=== PATIENT | female | born 1955 | race Caucasian/White ===

== ENCOUNTER 2022-12-23 09:19 | Emergency (ER) | payer MEDICARE, SELFPAY ==
[2022-12-23 09:32] VITALS: BP 158/84; PULSE 88; RESP 16; TEMP 36.9; O2SAT 97
--- NOTE | 2022-12-23 09:34 | ED.URI ---
HPI - URI/Sore Throat General Chief Complaint: Upper Respiratory Infection Stated Complaint: Sore Throat History of Present Illness HPI Narrative: PATIENT PRESENTS WITH A SORE THROAT. PATIENT STATES IT HURTS TO SWALLOW BUT SHE HAS NO SWALLOWING TROUBLE SWALLOWING NO DROOLING. PATIENT WATCHES HER GRANDDAUGHTER ON A DAILY BASIS WHILE HER DAUGHTER WORKS AND HER GRANDDAUGHTER TESTED POSITIVE FOR STREP 2 DAYS AGO. NO FEVER NO COUGH NO OTHER SYMPTOMS. Related Data Home Medications Medication Instructions Recorded Confirmed rizatriptan 10 mg tablet 10 mg PO DAILY PRN Migraine 12/23/22 12/23/22 Headache rosuvastatin 5 mg tablet 5 mg PO Q48H 12/23/22 12/23/22 Allergies Allergy/AdvReac Type Severity Reaction Status Date / Time Sulfa (Sulfonamide AdvReac Intermediate Nausea and Verified 12/23/22 09:41 Antibiotics) Vomiting Review of Systems Review of Systems: CONSTITUTIONAL: DENIES CHILLS, OR SWEATS. REPORTS FEVER AND GENERALIZED BODY ACHES EYES: DENIES VISUAL CHANGES, REDNESS, OR DISCHARGE. ENT: DENIES OTALGIA. REPORTS NASAL CONGESTION RUNNY NOSE AND SORE THROAT CARDIOVASCULAR: DENIES CHEST PAIN, PALPITATIONS, OR EDEMA. RESPIRATORY: DENIES DYSPNEA. REPORTS OCCASIONAL COUGH GASTROINTESTINAL: DENIES ABDOMINAL PAIN, NAUSEA, VOMITING, OR DIARRHEA. GENITOURINARY: DENIES DYSURIA OR HEMATURIA. SKIN: DENIES RASH OR ITCHING. MUSCULOSKELETAL: DENIES BACK PAIN, JOINT PAIN, OR MYALGIA. REPORTS GENERALIZED BODY ACHES NEUROLOGIC: DENIES HEADACHE, NUMBNESS, OR WEAKNESS. PSYCHIATRIC: DENIES ANXIETY OR DEPRESSION. Exam Narrative: THE PATIENT IS A WELL-DEVELOPED, WELL-NOURISHED IN NO ACUTE DISTRESS. SKIN: SKIN IS WARM AND DRY WITHOUT ERYTHEMA, SWELLING OR EXUDATE. THERE IS GOOD TURGOR. NO TENTING. HEAD: ATRAUMATIC. NORMOCEPHALIC. NO TEMPORAL OR SCALP TENDERNESS. EYES: MOIST AND BRIGHT. SCLERA AND CONJUNCTIVAE NORMAL. NO DISCHARGE. PERRLA. EXTRAOCULAR MOTIONS INTACT. GROSS VISUAL ACUITY INTACT. EARS: PINNA IS NORMAL SHAPE AND CONTOUR. CLEAR EXTERNAL AUDITORY CANALS. TM PEARLY DODSON WITH GOOD CONE OF LIGHT, NO ERYTHEMA OR SUPPURATION. BILATERAL CERUMEN NOTED NO GROSS HEARING DEFICIT. NOSE: PINK, MOIST MUCOSA WITH GOOD AIR MOVEMENT. CLEAR RHINORRHEA WITHOUT NASAL FLARING. SEPTUM MIDLINE. MOUTH: MOIST MUCOUS MEMBRANES. THROAT; MILD ERYTHEMA NOTED TO POSTERIOR OROPHARYNX WITH MODERATE POSTNASAL DRAINAGE. WITHOUT EXUDATE OR ULCERATION.. UVULA MIDLINE. NORMAL MOVEMENT OF SOFT PALATE. NECK: SUPPLE AND NONTENDER WITH FULL RANGE OF MOTION WITHOUT DISCOMFORT. NO MENINGEAL SIGNS. LUNGS: EQUAL AND BILATERAL BREATH SOUNDS WITHOUT WHEEZES, RALES OR RHONCHI. CHEST: THE CHEST WALL IS WITHOUT RETRACTIONS OR USE OF ACCESSORY MUSCLES. HEART: HAS A REGULAR RATE AND RHYTHM WITHOUT MURMUR, GALLOPS, CLICK OR RUB. ABDOMEN: SOFT, NONTENDER WITH POSITIVE ACTIVE BOWEL SOUNDS. NO REBOUND TENDERNESS. EXTREMITIES: WITHOUT CYANOSIS, CLUBBING OR EDEMA. EQUAL 2+ DISTAL PULSES AND 2 SECOND CAPILLARY REFILL NOTED. NEUROLOGIC: ALERT, ACTIVE, . THE PATIENT MOVES ALL EXTREMITIES WITH NORMAL MUSCLE STRENGTH. NORMAL MUSCLE TONE IS NOTED. NORMAL COORDINATION IS NOTED. NO FOCAL NEUROLOGICAL FINDINGS NOTED. Course Course Level of Care: Express Care Visit Vital Signs Vital signs: Vital Signs Temperature 36.9 C 12/23/22 09:32 Pulse Rate 88 12/23/22 09:32 Respiratory Rate 16 12/23/22 09:32 Blood Pressure 158/84 H 12/23/22 09:32 Pulse Oximetry 97 12/23/22 09:32 Oxygen Delivery Room Air 12/23/22 09:32 Temperature 36.9 C 12/23/22 09:32 Pulse Rate 88 12/23/22 09:32 Respiratory Rate 16 12/23/22 09:32 Blood Pressure 158/84 H 12/23/22 09:32 Pulse Oximetry 97 12/23/22 09:32 Oxygen Delivery Room Air 12/23/22 09:32 PLEASE JULISA SCHEDULE A FOLLOWUP VISIT WITH YOUR PERSONAL PHYSICIAN FOR FURTHER EVALUATION AND TREATMENT. INCLUDING RECHECK AND DISCUSSION OF YOUR BLOOD PRESSURE. IF YOUR SYMPTOMS PERSIST, CHANGE OR WORSEN SIGNIFICANTLY BEFOR
== END 2022-12-23 09:48 | disposition home or self-care (01) ==
PROVIDERS: Emergency Provider Nurse Practitioner Family
DX: J02.0 Streptococcal pharyngitis (principal)
CPT/HCPCS: 87081; 87880; 99213; G0463

== ENCOUNTER 2023-05-19 08:49 | Emergency (ER) | payer MEDICARE, SELFPAY ==
[2023-05-19 09:02] VITALS: BP 149/67; PULSE 94; RESP 14; TEMP 37.3; O2SAT 97
--- NOTE | 2023-05-19 09:36 | ED.URI ---
HPI - URI/Sore Throat General Chief Complaint: Upper Respiratory Infection Stated Complaint: congestion/throat Time Seen by Provider: 05/19/23 09:36 Source: patient, RN notes reviewed and old records reviewed Mode of arrival: ambulatory Limitations: no limitations History of Present Illness HPI Narrative: 68 year old female who presents to express care with complaints of sinus congestion, sinus drainage, cough, facial pressure, headache and left ear feels full. Patient reports that she has taken Flonase nasal spray, Tylenol and also Mucinex extreme cold for her symptoms. Patient reports history of sinus infections in the past with resent symptoms similar to past episodes. Patient reports only one functioning kidney told her to use Flonase instead of Zyrtec or Claritin since was better for her kidneys. Patient reports no known chills or sweats has had some low grade fevers. Patient reports that she has taken a home COVID test which was negative. MD elicited complaint: sore throat, rhinorrhea, nasal congestion and sinus pain Pertinent past history: sinusitis Onset (ago): day(s) (5) Severity: moderate Description of mucous: yellow Able to tolerate fluids by mouth: Yes Treatments prior to arrival: other (Flonase, Tylenol Mucinex extreme cold) Related Data Home Medications Medication Instructions Recorded Confirmed rizatriptan 10 mg tablet 10 mg PO DAILY PRN Migraine 12/23/22 12/23/22 Headache rosuvastatin 5 mg tablet 5 mg PO Q48H 12/23/22 12/23/22 Allergies Allergy/AdvReac Type Severity Reaction Status Date / Time Sulfa (Sulfonamide AdvReac Intermediate Nausea and Verified 12/23/22 09:41 Antibiotics) Vomiting Review of Systems Review of Systems: CONSTITUTIONAL:Reports malaise, no chills, sweats, positive for low grade fever. EYES: Denies visual changes, redness, or discharge. ENT: Reports rhinorrhea, congestion, sinus pain,left otalgia and sore throat. CARDIOVASCULAR: Denies chest pain, palpitations, or edema. RESPIRATORY: Reports cough.? Denies dyspnea. GASTROINTESTINAL: Denies abdominal pain, nausea, vomiting, diarrhea SKIN: Denies rash or itching. MUSCULOSKELETAL: Denies myalgia. NEUROLOGIC: Reports headache. All systems reviewed & are unremarkable except as noted in HPI and below PMFSH Past Medical History Medical History (Updated 05/20/23 @ 14:28 by Miri Shoemaker NP) COVID-19 Elevated cholesterol Hx of migraines Renal cyst, right Surgical History Surgical History (Updated 05/19/23 @ 09:52 by Miri Shoemaker NP) History of placement of ear tubes right ear Social History Social History (Updated 05/19/23 @ 09:53 by Miri Shoemaker NP) Smoking status: Never smoker Living arrangements: with family Gender identity (if verbalized by the patient): Female Comments At time of signature, agree with nursing past medical, surgical, social and family history. There is no relevant family history pertinent to the presenting complaint Exam Narrative: GENERAL: Well-appearing, well-nourished, and in no acute distress. HEAD: Normocephalic EYES: PERRLA, conjunctivae clear ENT: Nares clear, turbinates edematous and erythematous, clear to yellow discharge.headache pain Mucous membranes moist. TM pearly wheeler with dull light reflex bilaterally; no tragal tenderness.Ear tube in right ear. Oropharynx erythematous without lesions. Tonsils not enlarged and without exudate, no drooling, no hoarseness, no trismus, uvula midline. NECK: Supple. No lymphadenopathy CHEST: Clear to auscultation, breath sounds equal. No wheezing, rhonchi, rales, or stridor. No respiratory distress, speaks in full sentences.rare cough SAO2 97% on room air HEART: Regular rate and rhythm. No murmur heard. SKIN: Warm, dry, no rash. NEURO: Alert and oriented x3. PSYCH: Normal mood and affect Course Course Emergency Course: Patient is aware of diagnosis, understands and agrees to treat
== END 2023-05-19 10:04 | disposition home or self-care (01) ==
PROVIDERS: Emergency Provider Registered Nurse
DX: J32.9 Chronic sinusitis, unspecified (principal); E78.00 Pure hypercholesterolemia, unspecified; Z86.16 Personal history of COVID-19
CPT/HCPCS: 87081; 87804; 87880; 99213; G0463

== ENCOUNTER 2023-08-10 08:07 | Emergency (ER) | payer MEDICARE, SELFPAY ==
[2023-08-10 08:14] VITALS: BP 151/72; PULSE 110; RESP 20; TEMP 37.4; O2SAT 96
--- NOTE | 2023-08-10 08:19 | ED.URI ---
HPI - URI/Sore Throat General Chief Complaint: Upper Respiratory Infection Stated Complaint: cough,drainage,shortness of breath Time Seen by Provider: 08/10/23 08:19 Source: patient Mode of arrival: ambulatory Limitations: no limitations History of Present Illness HPI Narrative: 68-year-old female presented for complaint of cough and chest congestion over the past 5 days. Denies shortness of breath or wheezing but states she feels she cannot catch her breath at times due to coughing fits. Denies chest pain or palpitations, nausea, vomiting, body aches, lethargy or fever. took Tylenol for symptoms. Related Data Home Medications Medication Instructions Recorded Confirmed rizatriptan 10 mg tablet 10 mg PO DAILY PRN Migraine 12/23/22 12/23/22 Headache rosuvastatin 5 mg tablet 5 mg PO Q48H 12/23/22 12/23/22 Allergies Allergy/AdvReac Type Severity Reaction Status Date / Time meperidine [From Demerol] Allergy Unknown Verified 08/10/23 08:17 Sulfa (Sulfonamide AdvReac Intermediate Nausea and Verified 12/23/22 09:41 Antibiotics) Vomiting Review of Systems Review of Systems: CONSTITUTIONAL: Denies body aches, fever, chills, or sweats. EYES: Denies visual changes, redness, or discharge. ENT: Denies rhinorrhea, congestion, sore throat, or otalgia. CARDIOVASCULAR: Denies chest pain, palpitations, or edema. RESPIRATORY: Reports cough, denies sob, wheezing. GASTROINTESTINAL: Denies abdominal pain, nausea, vomiting, or diarrhea. SKIN: Denies rash, itching, or wounds. MUSCULOSKELETAL: Denies back pain, joint pain, or myalgia. NEUROLOGIC: Denies headache, numbness, tingling, or weakness. All systems reviewed & are unremarkable except as noted in HPI and below PMFSH Past Medical History Medical History COVID-19 Elevated cholesterol Hx of migraines Renal cyst, right Surgical History Surgical History History of placement of ear tubes right ear Social History Social History Smoking status: Never smoker Living arrangements: with family Gender identity (if verbalized by the patient): Female Comments At time of signature, I have reviewed and agree with nursing past medical, surgical, social and family history unless otherwise noted. Please see nursing chart for further information. There is no relevant family history pertinent to the presenting complaint Exam Narrative: GENERAL: Well-appearing, in no acute distress. EYES: EOMI. No redness or drainage. Conjunctivae normal. ENT: Mucous membranes pink and moist. No rhinorrhea. TMs normal bilaterally. Throat normal. Uvula midline. NECK: Normal AROM. Supple. CHEST: No respiratory distress. Lungs clear to all [place]. 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 HEART: Regular rate and rhythm. No murmur appreciated. ABDOMEN: Soft, nontender, nondistended, normal active bowel sounds. SKIN: Warm, dry, no rash. Capillary refill normal. Normal skin turgor. NEURO: Alert and oriented x3. Gait steady. PSYCH: Normal affect. Course Course Emergency Course: Patient is aware of diagnosis, understands and agrees to treatment plan. Anticipatory guidance given. Patient agrees to follow-up as directed and is aware of reasons to seek care at the emergency department. Portions of this record may have been created with voice recognition software Level of Care: Express Care Visit MDM - URI/Sore Throat MDM Narrative Medical decision making narrative: Discussed physical exam findings and Rxs. Advised supportive measures and signs/symptoms to go to the ER. Pt is appropriate for outpt treatment and f/u. Differential Diagnosis Differential diagnosis: Likely upper respiratory infection, otitis media, sinusitis, viral infection, bronchitis, influenza and pharyngitis Discharge Plan Discharge Clinical Impress
== END 2023-08-10 08:38 | disposition home or self-care (01) ==
PROVIDERS: Emergency Provider Nurse Practitioner Family
DX: J40 Bronchitis, not specified as acute or chronic (principal); E78.00 Pure hypercholesterolemia, unspecified; Z86.16 Personal history of COVID-19
CPT/HCPCS: 99213; G0463